=== PATIENT | male | born 1970 | race African-American/Black ===

== ENCOUNTER 2016-11-29 11:21 | Emergency (ER) | payer OTHER ==
[~2016-11-29] VITALS: Ht 170.2 cm; Wt 82.7 kg
[2016-11-29 12:33] LABS: POINT-OF-CARE METER ID UU13113778
[2016-11-29] MEDS ORDERED: NAPROSYN500 MG PO (14:34)
== END 2016-11-29 14:47 | disposition home or self-care (01) ==
LOC: EME 11:21
PROVIDERS: Nurse Practitioner Family
DX: M79.89 Other specified soft tissue disorders (principal); M79.641 Pain in right hand; Z91.14 Patient's other noncompliance with medication regimen; W22.09XA Striking against other stationary object, initial encounter; S01.81XD Laceration without foreign body of other part of head, subsequent encounter; E11.9 Type 2 diabetes mellitus without complications; F17.200 Nicotine dependence, unspecified, uncomplicated; Z71.6 Tobacco abuse counseling
CPT/HCPCS: 73130; 82948; 99281; 99284